=== PATIENT | female | born 1940 | race Caucasian/White ===

== ENCOUNTER → 2020-03-04 | Outpatient (CLI) | payer MEDICARE, OTHER ==
[~2020-03-04] MED LIST: IBUP-1623 PO; LEVO50TA5 PO; PRAM0.12 PO; THYROID MEDICATION PO
== END | disposition home or self-care (01) ==
LOC: STAR 11:13
PROVIDERS: ATTEND Thoracic Surgery (Cardiothoracic Vascular Surgery)
DX: Z01.812 Encounter for preprocedural laboratory examination (principal); Z20.828 Contact with and (suspected) exposure to other viral communicable diseases
CPT/HCPCS: 36415; 87635; 93005

== ENCOUNTER 2020-03-09 06:05 | Observation (INO) | payer MEDICARE, OTHER ==
[~2020-03-09] VITALS: Ht 154.9 cm; Wt 83.1 kg
[~2020-03-09 06:05] MED LIST changes: -IBUP-1623 PO; -LEVO50TA5 PO; -PRAM0.12 PO
[2020-03-09] MEDS ORDERED: PRAM0.12 PO (06:48)
[2020-03-09] MEDS ORDERED: IBUP-1623 PO (06:48)
[2020-03-09] MEDS ORDERED: LEVO50TA5 PO (06:48)
[2020-03-09] MEDS ORDERED: EPINEPHRINE 1 MG/ML, 1ML ONE (06:57)
[2020-03-09] MEDS ORDERED: BUPIVACAINE/PF 0.5% ONE (06:57)
[2020-03-09] MEDS ORDERED: CHLORHEXIDINE 15 ML UDC MM ONE (07:00)
[2020-03-09] MEDS ORDERED: LACTATED RINGERS 1,000 ML IV SCH (07:00)
[2020-03-09] MEDS ORDERED: LIDOCAINE-MPF 2% ,5ML ONE (07:17)
[2020-03-09] MEDS ORDERED: PROPOFOL 10 MG/ML, 20ML ONE (07:17)
[2020-03-09] MEDS ORDERED: FENTANYL PF 250 MCG/5ML ONE (07:17)
[2020-03-09] MEDS ORDERED: ROCURONIUM 10MG/ML,5ML ONE (07:18)
[2020-03-09] MEDS ORDERED: PHENYLEPHRINE 10 MG/ML ONE (07:27)
[2020-03-09] MEDS ORDERED: DEXAMETHASONE 4 MG/ML, 1ML ONE ×2 (07:38)
[2020-03-09] MEDS ORDERED: CEFAZOLIN 1,000 MG ONE ×2 (07:39)
[2020-03-09] MEDS ORDERED: METOPROLOL 1 MG/ML, 5ML ONE ×2 (07:57)
[2020-03-09] MEDS ORDERED: HYDROmorphone 1 MG/ML, 1ML INJ IVPush PRN (08:30)
[2020-03-09] MEDS ORDERED: ONDANSETRON 2MG/ML, 2ML IVPush PRN ×2 (08:30→10:00)
[2020-03-09] MEDS ORDERED: DIAZEPAM 5 MG/ML, 2ML IVPush PRN (08:30)
[2020-03-09] MEDS ORDERED: ALBUTEROL SULFATE 2.5 MG/3 ML NPPB PRN (08:30)
[2020-03-09] MEDS ORDERED: ONDANSETRON 2MG/ML, 2ML ONE (09:27)
[2020-03-09] MEDS ORDERED: SUGAMMADEX 200 MG/2 ML IVPush ONE (09:27)
[2020-03-09] MEDS ORDERED: LABETALOL 5MG/ML, 20ML ONE (10:00)
[2020-03-09] MEDS: LABETALOL 5MG/ML, 20ML IV PRN ×2 (10:00→10:10)
[2020-03-09] MEDS ORDERED: FENTANYL PF 100 MCG/2ML ONE (10:00)
[2020-03-09] MEDS ORDERED: ACETAMINOPHEN 650 MG/20.3 ML UDC PO PRN (10:00)
[2020-03-09] MEDS ORDERED: hydrALAzine 20 MG/ML, 1ML IV PRN (10:00)
[2020-03-09] MEDS ORDERED: ENALAPRILAT 1.25 MG/ML, 2ML IV PRN (10:00)
[2020-03-09] MEDS ORDERED: OXYcodone 5 MG/5 ML ORAL.SOL UDC ONE (10:14)
[2020-03-09] MEDS: FENTANYL PF 100 MCG/2ML IV PRN ×2 (10:15→10:44)
[2020-03-09] MEDS ORDERED: OXYcodone 5 MG/5 ML ORAL.SOL UDC PO PRN (11:00)
[2020-03-09 12:05] VITALS: BP 145/79
[2020-03-09] MEDS: HYDROcodone/APAP 7.5-325MG/15ML UDC PO PRN ×2 (12:05→17:08)
[2020-03-09] MEDS: FAMOTIDINE 20 MG/2 ML IV SCH ×2 (12:07→21:12)
[2020-03-09] MEDS: morphine SULFATE 10 MG/ML, 1ML IV PRN ×2 (14:00→17:40)
[2020-03-09] MEDS: LACTATED RINGERS 1,000 ML IV SCH (17:40)
[2020-03-09 18:52] VITALS: BP 151/82
[2020-03-09 23:37] VITALS: BP 142/83
[2020-03-10] MEDS: LACTATED RINGERS 1,000 ML IV SCH ×2 (01:17→09:29)
[2020-03-10] MEDS: morphine SULFATE 10 MG/ML, 1ML IV PRN ×2 (01:26→06:24)
[2020-03-10 03:09] VITALS: BP 147/80
[2020-03-10 07:03] VITALS: BP 137/73
[2020-03-10] MEDS ORDERED: ENOXAPARIN 40 MG/0.4 ML SQ SCH (09:00)
[2020-03-10] MEDS: FAMOTIDINE 20 MG/2 ML IV SCH (09:28)
[2020-03-10] MEDS ORDERED: HYDR473S45 PO (10:14)
[2020-03-10] MEDS ORDERED: LEVOTHYROXINE 50 MCG TABLET PO SCH (11:30)
== END 2020-03-10 11:10 | disposition home or self-care (01) ==
LOC: OUT 06:05 → ORIP 09:42 → 4NE 11:05
PROVIDERS: ADMIT Thoracic Surgery (Cardiothoracic Vascular Surgery); ATTEND Thoracic Surgery (Cardiothoracic Vascular Surgery)
DX: K44.9 Diaphragmatic hernia without obstruction or gangrene (principal); J44.9 Chronic obstructive pulmonary disease, unspecified; M19.90 Unspecified osteoarthritis, unspecified site; E78.00 Pure hypercholesterolemia, unspecified; E03.9 Hypothyroidism, unspecified; E78.5 Hyperlipidemia, unspecified; Z87.891 Personal history of nicotine dependence; Z79.899 Other long term (current) drug therapy
CPT/HCPCS: 43282; 96361; 96372; 96374; 96375; 96376; C1781; G0378; J0171; J0690; J1100; J1650; J2270; J2370; J2405; J2704; J3010; J3490; J7120; S0020